=== PATIENT | female | born 1970 | race Caucasian/White ===

== ENCOUNTER → 2017-07-21 | Outpatient (CLI) | payer OTHER ==
[~2017-07-21] MED LIST: LISI10TA PO; [UNRECOGNIZED DRUG - CODE] PO
== END | disposition home or self-care (01) ==
LOC: RADPV 09:49
PROVIDERS: ATTEND Podiatrist Foot & Ankle Surgery
DX: M25.872 Other specified joint disorders, left ankle and foot (principal)

== ENCOUNTER 2017-07-29 10:18 | Emergency (ER) | payer OTHER ==
[~2017-07-29] VITALS: Ht 165.1 cm; Wt 64.5 kg
[2017-07-29] MEDS ORDERED: ATEN25TA PO (10:42)
[2017-07-29] MEDS ORDERED: ASPI81 PO (10:42)
[2017-07-29] MEDS ORDERED: SODIUM CHLORIDE 0.9% 0 ML ONE (11:04)
[2017-07-29] MEDS ORDERED: IOVERSOL 350 MG/ML 100 ML VIAL ONE (11:04)
[2017-07-29 11:45] LABS: EOSINOPHILS % (AUTO) 2.4 % (1.0-6.0); HEMATOCRIT 38.6 % (36-46); HEMOGLOBIN 13.5 g/dL (12.0-16.0); LYMPHOCYTES # (AUTO) 1.3 K/uL (1.0-4.8); LYMPHOCYTES % (AUTO) 21.7 % (22.0-44.0); MEAN CORPUSCULAR HEMOGLOBIN 31.3 pg (26.0-34.0); MEAN CORPUSCULAR VOLUME 89 fL (80-100); MONOCYTES # (AUTO) 0.4 K/uL (0.1-1.0); NEUTROPHILS # (AUTO) 4.1 K/uL (1.8-7.7); NEUTROPHILS % (AUTO) 68.9 % (40.0-70.0); RED BLOOD CELL COUNT(AUTO) 4.32 MIL/uL (4.00-5.20); RED CELL DISTRIBUTION WIDTH 13.2 % (11.5-14.5)
[2017-07-29 11:58] LABS: ANION GAP 10 mmol/L (8-16); CALCIUM, TOTAL 9.8 mg/dL (8.8-10.5); CARBON DIOXIDE 28 mmol/L (22-29); CHLORIDE 101 mmol/L (98-107); CREATININE 0.89 mg/dL (0.60-1.30); GLOMERULAR FILTR. RATE CALC > 60 mL/min (>60); GLUCOSE,RANDOM 89 mg/dL (70-110); POTASSIUM 4.3 mmol/L (3.5-5.1); SODIUM SERUM 139 mmol/L (136-145); UREA NITROGEN, BLOOD 12 mg/dL (7-18)
[2017-07-29 12:03] LABS: ALANINE AMINOTRANSFERASE 38 U/L (12-78); ALBUMIN 4.2 g/dL (3.4-5.0); ALKALINE PHOSPHATASE 83 U/L (46-116); ASPARTATE AMINOTRANSFERASE 37 U/L (15-37); BILIRUBIN,TOTAL 0.4 mg/dL (0.1-1.0); TOTAL PROTEIN, SERUM 8.6 g/dL (6.4-8.2)
[2017-07-29] MEDS ORDERED: LISI-662 PO (12:12)
[2017-07-29] MEDS ORDERED: ACETAMINOPHEN 325 MG TABLET PO ONE (12:15)
[2017-07-29 13:02] LABS: PLATELET COUNT (AUTO) 163 K/uL (150-450)
[2017-07-29 14:50] LABS: APPEARANCE,CSF CLEAR (CLEAR); COLOR,CSF COLORLESS (COLORLESS); CSF TUBE NUMBER 1; WHITE BLOOD CELL1,CSF 3.8 CMM (0-5)
[2017-07-29 14:51] LABS: APPEARANCE2,CSF CLEAR (CLEAR); COLOR2,CSF COLORLESS (COLORLESS); CSF 2ND TUBE NUMBER 4; LYMPHOCYTES1,CSF 94 %; MONOCYTES1,CSF 2 %; NEUTROPHILS1,CSF 4 %; RED BLOOD CELL1,CSF 6.6 CMM (0-0); WHITE BLOOD CELL2,CSF 2.7 CMM (0-5)
[2017-07-29 14:52] LABS: LYMPHOCYTES2,CSF 98 %; NEUTROPHILS2,CSF 2 %
[2017-07-29 15:08] LABS: MONOCYTES2,CSF 0 %
[2017-07-29 15:09] LABS: OTHER CELLS,CSF 0; OTHER CELLS,CSF 2ND 0
[2017-07-29 15:17] VITALS: BP 155/80
[2017-07-29 16:17] LABS: GLUCOSE, CSF 62 mg/dL (50-80); TOTAL PROTEIN, CSF 33 mg/dL (15-45)
== END 2017-07-29 15:32 | disposition home or self-care (01) ==
LOC: EMS 10:20
DX: R51 Headache (principal); H53.9 Unspecified visual disturbance; I10 Essential (primary) hypertension; Z88.0 Allergy status to penicillin
CPT/HCPCS: 62270; 70450; 82945; 84157; 87070; 87205; 89051; 93005; 99285; J7050

== ENCOUNTER 2024-11-13 05:29 | Emergency (ER) | payer OTHER ==
[~2024-11-13] VITALS: Ht 165.1 cm; Wt 66.8 kg
[~2024-11-13 05:29] MED LIST changes: +ASPI-1450 PO; +ATEN-73 PO; +LISI-894 PO; -LISI10TA PO
[2024-11-13 05:35] VITALS: TEMP 97.9
[2024-11-13 06:10] LABS: COVID AG,FIA SOURCE NASAL SWAB
[2024-11-13 06:34] LABS: INFLUENZA TYPE A NEGATIVE FOR TYPE A (NEGATIVE); INFLUENZA TYPE B NEGATIVE FOR TYPE B (NEGATIVE)
[2024-11-13 06:35] LABS: SARS-COV2 (COVID) ANTIGEN,FIA Negative (Negative)
[2024-11-13] MEDS ORDERED: ACET-3385 PO (06:45)
[2024-11-13] MEDS ORDERED: IBUP-1492 PO (06:45)
[2024-11-13] MEDS ORDERED: AZIT-167 PO (06:45)
[2024-11-13] MEDS: KETOROLAC TROMETHAMINE 30 MG/ML VIAL IM ONE (06:54)
[2024-11-13] MEDS: AZITHROMYCIN 500 MG TABLET PO ONE (06:55)
[2024-11-13 06:58] VITALS: BP 139/78; PULSE 96; RESP 18; O2SAT 98
== END 2024-11-13 07:13 | disposition home or self-care (01) ==
LOC: EMS 06:16
DX: J03.90 Acute tonsillitis, unspecified (principal); I10 Essential (primary) hypertension; G43.909 Migraine, unspecified, not intractable, without status migrainosus; F17.210 Nicotine dependence, cigarettes, uncomplicated; Z91.030 Bee allergy status; Z88.0 Allergy status to penicillin; Z98.890 Other specified postprocedural states; Z79.82 Long term (current) use of aspirin; Z79.899 Other long term (current) drug therapy; Z20.822 Contact with and (suspected) exposure to COVID-19
CPT/HCPCS: 99283; 87426; 87804; 96372; J1885; J0456